=== PATIENT | female | born 1940 | race Two or more races ===

== ENCOUNTER 2018-07-17 12:08 | Emergency (ER) | payer OTHER ==
[~2018-07-17] VITALS: Ht 162.6 cm; Wt 72.1 kg
[2018-07-17] MEDS ORDERED: HYDROCHLOROTH12.5 MG (13:50)
[2018-07-17] MEDS ORDERED: AVAPRO300 MG (13:50)
[2018-07-17] MEDS ORDERED: TOPROL XL25 M1 (13:52)
[2018-07-17] MEDS ORDERED: AMLODIPINE BESYL5 MG (13:52)
[2018-07-17] MEDS ORDERED: METFORMIN 250 MG (13:52)
== END 2018-07-17 17:05 | disposition home or self-care (01) ==
LOC: ER 12:08 → EDBD 12:56 → ER 12:56
DX: J32.8 Other chronic sinusitis (principal); R51 Headache

== ENCOUNTER → 2018-08-31 | Outpatient (CLI) | payer OTHER ==
[~2018-08-31] MED LIST: AMLODIPINE BESYL5 MG; AVAPRO300 MG; HYDROCHLOROTH12.5 MG; METFORMIN 250 MG; TOPROL XL25 M1
== END | disposition home or self-care (01) ==
LOC: MAMO-SONO 12:22
DX: Z12.31 Encounter for screening mammogram for malignant neoplasm of breast (principal); Z87.898 Personal history of other specified conditions; Z01.419 Encounter for gynecological examination (general) (routine) without abnormal findings; R32 Unspecified urinary incontinence

== ENCOUNTER 2018-10-18 11:05 | Outpatient (CLI) | payer OTHER | END 2018-10-18 11:07 | disposition home or self-care (01) | LOC: SONOGRAMA 11:05 | DX: N63.10 Unspecified lump in the right breast, unspecified quadrant (principal) ==

== ENCOUNTER 2020-05-03 09:42 | Outpatient (CLI) | payer OTHER | END 2020-05-03 09:56 | disposition home or self-care (01) | LOC: RAD 09:42 | PROVIDERS: ATTEND Internal Medicine | DX: M26.602 Left temporomandibular joint disorder, unspecified (principal) ==

== ENCOUNTER 2021-08-26 09:04 | Outpatient (CLI) | payer OTHER | END 2021-08-26 09:07 | disposition home or self-care (01) | LOC: RAD 09:04 | PROVIDERS: ATTEND Specialist | DX: M51.36 Other intervertebral disc degeneration, lumbar region (principal); M16.12 Unilateral primary osteoarthritis, left hip ==

== ENCOUNTER 2021-09-25 09:11 | Outpatient (CLI) | payer OTHER | END 2021-09-25 09:19 | disposition home or self-care (01) | LOC: MRI 09:11 | PROVIDERS: ATTEND Specialist | DX: M54.17 Radiculopathy, lumbosacral region (principal); M51.26 Other intervertebral disc displacement, lumbar region | CPT/HCPCS: 72148 ==

== ENCOUNTER 2022-10-10 08:26 | Outpatient (CLI) | payer OTHER | END 2022-10-10 08:32 | disposition home or self-care (01) | LOC: TOM 08:26 | PROVIDERS: ATTEND Specialist | DX: D14.2 Benign neoplasm of trachea (principal) ==

== ENCOUNTER 2022-12-01 08:26 | Outpatient (CLI) | payer OTHER | END 2022-12-01 08:30 | disposition home or self-care (01) | LOC: SONOGRAMA 08:26 | PROVIDERS: ATTEND Pathology Anatomic Pathology & Clinical Pathology | DX: D34 Benign neoplasm of thyroid gland (principal); E04.9 Nontoxic goiter, unspecified ==

== ENCOUNTER 2022-12-13 08:59 | Emergency (ER) | payer OTHER ==
[~2022-12-13] VITALS: Ht 162.6 cm; Wt 71.7 kg
[2022-12-13] MEDS ORDERED: SIMVASTATIN10 MG (10:52)
== END 2022-12-13 14:02 ==
LOC: ER 08:59
PROVIDERS: General Practice
DX: U07.1 COVID-19 (principal); Z88.6 Allergy status to analgesic agent; Z88.0 Allergy status to penicillin; Z91.013 Allergy to seafood; E11.9 Type 2 diabetes mellitus without complications; Z79.84 Long term (current) use of oral hypoglycemic drugs; I10 Essential (primary) hypertension

== ENCOUNTER 2024-04-08 09:28 | Outpatient (CLI) | payer OTHER ==
[~2024-04-08 09:28] MED LIST changes: +SIMVASTATIN10 MG
== END 2024-04-08 09:30 | disposition home or self-care (01) ==
LOC: MAMO-SONO 09:28
PROVIDERS: ATTEND Obstetrics & Gynecology
DX: N64.4 Mastodynia (principal); Z12.31 Encounter for screening mammogram for malignant neoplasm of breast

== ENCOUNTER 2024-12-16 08:19 | Emergency (ER) | payer OTHER ==
[~2024-12-16] VITALS: Ht 165.1 cm; Wt 72.6 kg
[2024-12-16] MEDS ORDERED: LEVALBUTEROL HCL 1.25 MG/3 ML SOLUTION IH SCH (09:30)
[2024-12-16 09:49] LABS: ABG PH 7.395 (7.35-7.45); ABG PO2 83.3 mmHg (80-100); BICARBONATE 24.4 mmol/l (23-25)
[2024-12-16 09:50] LABS: o2 21 %
[2024-12-16 09:53] LABS: BASO % 0.7 % (0.1-1.2); EOS # 0.19 (0.04-0.54); EOS % 2.1 % (0.7-7.0); LYMPH # 2.19 (1.18-3.74); LYMPH % 24.2 % (19.3-53.1); MEAN PLATELET VOLUME 8.50 fl (9.4-12.4); MONO # 0.66 (0.24-0.82); MONO % 7.3 % (4.7-12.5); NEUT # 5.94 (1.56-6.13); NEUT % 65.5 % (34.0-71.1); RED CELL DISTRIBUTION WIDTH 18.1 % (11.6-14.4)
[2024-12-16 10:18] LABS: ALT/SGPT 16.0 U/L (12-78); AST/SGOT 21.0 U/L (15-37); BILIRUBIN TOTAL 0.45 mg/dL (0.3-1.2); BUN CREA RATIO 22.0 (7.0-25.0); CREATININE SERUM 0.96 mg/dL (0.55-1.02); GFR 55.37; GLOBULINA 4.5 G/DL (2.4-3.5); GLUCOSE FASTING 117.0 mg/dL (65-100); OSMOLALITY SERUM 285.0 MOSM/KG (275-295)
[2024-12-16 10:36] LABS: COVID-19 AG NEGATIVE (NEGATIVE)
== END 2024-12-16 11:04 | disposition home or self-care (01) ==
LOC: ER 08:19
PROVIDERS: General Practice
DX: J06.9 Acute upper respiratory infection, unspecified (principal); Z88.0 Allergy status to penicillin; Z91.013 Allergy to seafood; Z88.6 Allergy status to analgesic agent; Z20.822 Contact with and (suspected) exposure to COVID-19